=== PATIENT | female | born 2000 | race African-American/Black ===

== ENCOUNTER 2018-08-11 00:19 | Emergency (ER) | payer SELFPAY ==
[2018-08-11] MEDS ORDERED: ONDANSETRON 4 MG/2 ML VIAL IVP ONE (00:25)
[2018-08-11] MEDS ORDERED: NS(*) 0.9% 1000 ML BAG 1,000 ML IV ONE (00:25)
[2018-08-11] MEDS ORDERED: BIRTH CONTROL PO (00:32)
--- NOTE | 2018-08-11 01:11 | ER Report ---
History and Physical Time Seen By MD: 00:24 Hx. of Stated Complaint: PATIENT STATES DRINK A LOT TONIGHT, PATIENT VOMITING. HPI/ROS CHIEF COMPLAINT: Vomiting, alcohol intoxication HISTORY OF PRESENT ILLNESS: 18-year-old female brought in by her boyfriend with vomiting after consuming a moderate amount of alcohol tonight. She is here having continuous dry heaves. She was describes having convulsions. REVIEW OF SYSTEMS: Respiratory: No cough, no dyspnea. Cardiovascular: No chest pain, no palpitations. Gastrointestinal: No vomiting, no abdominal pain. Musculoskeletal: No back pain. Home Meds Reported Medications [ Control] No Conflict Check, 1 TAB PO QDAY 08/11/18 Reviewed Nurses Notes: Yes Old Medical Records Reviewed: Yes Constitutional Vital Sign - Last 24 Hours 08/11/18 08/11/18 08/11/18 08/11/18 00:23 00:30 00:34 00:49 Temp 97.5 Pulse 104 107 ??? Resp 24 B/P (MAP) 141/104 104/47 (66) Pulse Ox 96 92 100 O2 Delivery Room Air 08/11/18 08/11/18 08/11/18 08/11/18 01:00 01:04 01:30 01:34 Pulse 108 ??? B/P (MAP) 108/74 (85) 116/82 (93) Pulse Ox 95 94 Physical Exam General Appearance: The patient is alert, has no immediate need for airway protection and no current signs of toxicity. HEENT: Pupils equal and round no injection. TMs normal, oropharynx without dental trauma Respiratory: Chest is non tender, lungs are clear to auscultation. Cardiac: regular rate and rhythm Gastrointestinal: Abdomen is soft and non tender, no masses, bowel sounds normal. Musculoskeletal: Neck: Neck is supple and non tender. Extremities have full range of motion and are non tender. Skin: No rashes or lesions. DIFFERENTIAL DIAGNOSIS: After history and physical exam differential diagnosis was considered for alcohol poisoning, food poisoning, gastroenteritis, viral syndrome Medical Decision Making Data Points Laboratory Hematology Test 08/11/18 00:25 Serum Alcohol 203 mg/dl Chemistry Test 08/11/18 00:25 Serum Alcohol 203 mg/dl Toxicology Test 08/11/18 00:25 Serum Alcohol 203 mg/dl ED Course/Re-evaluation Clinical Indication for ER IV: Hydration, IV Access ED Course Patient was admitted to an examination room. H&P was done. The differential diagnoses was considered. On clinical examination, patient appears to have acute alcohol poisoning. She is treated with IV fluid hydration, Zofran 8 mg IV. Blood alcohol level returns at 203. After 60 minutes of observation, the patient's much improved. Is tolerating by mouth challenge. She would like to go home. Decision to Disposition Date: Aug 11, 2018 Decision to Disposition Time: 01:10 Depart Departure Latest Vital Signs Vital Signs Date Time Temp Pulse Resp B/P (MAP) Pulse Ox O2 Delivery O2 Flow Rate FiO2 08/11/18 01:34 ??? 94 08/11/18 01:30 116/82 (93) 08/11/18 00:23 97.5 24 Room Air Impression: Primary Impression: Alcohol poisoning Additional Impression: Convulsions Condition: Improved Disposition: HOME OR SELF-CARE Patient Instructions: Abuse of Alcohol (ED) Problem Qualifiers Primary Impression: Alcohol poisoning Encounter type: initial encounter Injury intent: accidental or unintentional Qualified Codes: T51.91XA - Toxic effect of unspecified alcohol, accidental (unintentional), initial encounter Additional Impression: Convulsions Convulsion type: unspecified Qualified Codes: R56.9 - Unspecified convulsions CELESTE MARCANO DO Aug 11, 2018 01:11
[2018-08-11] MEDS ORDERED: ONDANSETRON 4 MG ODT TH SL ONE (01:15)
[2018-08-11 01:30] VITALS: BP 116/82
== END 2018-08-11 01:45 | disposition home or self-care (01) ==
LOC: ER 00:24
DX: F10.920 Alcohol use, unspecified with intoxication, uncomplicated (principal); R56.9 Unspecified convulsions
CPT/HCPCS: 80320; 96361; 96374; 99284; J2405; J7030; S0119